=== PATIENT | female | born 1990 | race Caucasian/White ===

== ENCOUNTER 2017-06-11 06:22 | Inpatient (IN) ==
[2017-06-11] MEDS: LACTATED RINGERS 1,000 ML IV SCH ×3 (07:09→21:04)
[2017-06-11] MEDS ORDERED: MEPERIDINE 50 MG/1 ML VIAL IV PRN (07:11)
[2017-06-11] MEDS ORDERED: BUTORPHANOL 2 MG/ML VIAL IV PRN (07:11)
[2017-06-11] MEDS ORDERED: ONDANSETRON 4 MG/2 ML VIAL IV PRN (07:11)
[2017-06-11] MEDS ORDERED: AMPICILLIN INJ 2,000 MG in SODIUM CHLORIDE 0.9% 50 ML IV ONE (07:15)
[2017-06-11] MEDS ORDERED: OXYTOCIN/LR 20 UNIT/1,000 ML BAG IV SCH (07:30)
[2017-06-11 07:42] LABS: Basophils # 0.1 10*3/uL (0.0-0.2); Basophils % 0.7 % (0.0-0.8); Eosinophils # 0.2 10*3/uL (0.0-0.87); Eosinophils % 1.5 % (0.00-10.9); Hematocrit 35.6 VOL% (35.7-47.0); Hemoglobin 13.1 GM/DL (12.0-16.0); Immature Granulocytes % 1.5 %; Immature Granulocytes Absolute 0.16 #; Lymphocytes # 2.5 10*3/uL (1.4-4.0); Lymphocytes % 23.6 % (21.3-54.2); Mean Corpuscular HGB Conc 36.8 GM/DL (32-36); Mean Corpuscular Hemoglobin 33 PG (27-34); Mean Corpuscular Volume 89.2 FL (87-102); Mean Platelet Volume 10.2 FL (9.6-12.0); Monocytes # 0.7 10*3/uL (0.11-0.8); Monocytes % 6.7 % (1.7-12.7); Platelet Count 185 T/CUMM (130-400); Red Blood Count 3.99 MC/CUMM (3.8-5.5); Red Cell Distribution Width 12.9 % (9.3-17.3); White Blood Count 10.6 T/CUMM (4-12)
[2017-06-11 07:55] LABS: INR 0.9; PT Patient Result 9.7 SECS; Partial Thromboplastin Time 27.1 SECS (0-40)
[2017-06-11 08:19] LABS: Albumin 3.1 G/DL (3.4-5.0); Bilirubin,Total 0.7 MG/DL (0.2-1.0); Osmolality,Calculated 266.2 MOS/KG (273-304); Potassium 3.8 MMOL/L (3.5-5.1); Total Protein 7.3 G/DL (6.4-8.3); Uric Acid 4.7 MG/DL (2.6-6.0)
[2017-06-11] MEDS ORDERED: ePHEDrine 50 MG/ML AMP IV PRN (12:42)
[2017-06-11] MEDS ORDERED: hydrOXYzine HCL 25 MG/1 ML VIAL IM PRN (12:42)
[2017-06-11] MEDS ORDERED: CITRIC ACID/SODIUM CITRATE 30 ML UDCUP PO ONE (12:42)
[2017-06-11] MEDS ORDERED: diphenhydrAMINE 50 MG/1 ML VIAL IV PRN ×2 (12:42)
[2017-06-11] MEDS ORDERED: PROMETHAZINE 25 MG/1 ML VIAL IM ONE (12:42)
[2017-06-11] MEDS ORDERED: LACTATED RINGERS 1,000 ML IV ONE (12:42)
[2017-06-11] MEDS ORDERED: FAMOTIDINE 20 MG/2 ML VIAL IV ONE (12:42)
[2017-06-11] MEDS: fentaNYL 2 MCG/ROPIV 0.2% EPID 150 ML EPIDURAL SCH ×2 (13:25→22:57)
[2017-06-11 13:59] LABS: HIV Antigen/Antibody Result Nonreactive (Nonreactive); Hepatitis B Surface Ag Quant 0.17 Index; Hepatitis B Surface Ag Result Negative (Negative); Rubella Antibody IgG 27.4 IU/ML
[2017-06-11 15:44] LABS: Apearance,Urine CLEAR (Clear); Bilirubin,Urine Negative (Negative); Blood, Urine Negative (Negative); Glucose,Urine (UA) Negative (Negative); Ketones,Urine Negative (Negative); Nitrite,Urine Negative (Negative); Protein,Urine Negative; RBC,Urine 1 /HPF (0-4); Urine Color Straw (Yellow); Urine Specific Gravity 1.005 (1.001-1.035); Urine Urobilinogen < 2.0 EU/DL (0.2-1.0); WBC,Urine <1 /HPF (0-6)
[2017-06-11] MEDS ORDERED: LIDOCAINE 1% 50 ML VIAL ONE (21:22)
[2017-06-11] MEDS ORDERED: miSOPROStol 200 MCG TABLET ONE (21:23)
[2017-06-11] MEDS ORDERED: METHYLERGONOVINE 0.2 MG/1 ML AMP ONE (21:23)
[2017-06-11] MEDS ORDERED: TRANEXAMIC ACID 1,000 MG/10 ML VIAL IV ONE (21:23)
[2017-06-12] MEDS ORDERED: ACETAMINOPHEN 325 MG TABLET PO PRN (00:26)
[2017-06-12] MEDS ORDERED: LANOLIN 50% CREAM 0.3 OZ TUBE TOP PRN (00:26)
[2017-06-12] MEDS ORDERED: HYDROCORTISONE 2.5% RECTAL CREAM 30 GM TUBE TOP PRN (00:26)
[2017-06-12] MEDS ORDERED: DIPH/TET/ACEL PERT BOOSTER VACCINE 0.5 ML VIAL IM ONE (00:26)
[2017-06-12] MEDS ORDERED: RHO(D) IMMUNE GLOBULIN 300 MCG SYRINGE IM ONE ×2 (00:26→18:53)
[2017-06-12] MEDS ORDERED: OXYTOCIN/LR 20 UNIT/1,000 ML BAG IV ONE (00:26)
[2017-06-12] MEDS ORDERED: WITCH HAZEL PADS 100/JAR TOP PRN (00:26)
[2017-06-12] MEDS ORDERED: BENZOCAINE 20%/MENTHOL 0.5% SPRAY 56 GM CAN TOP PRN (00:26)
[2017-06-12] MEDS ORDERED: MEASLES/MUMPS/RUBELLA VACCINE 0.5 ML VIAL SUBCUT ONE (00:26)
[2017-06-12] MEDS ORDERED: ONDANSETRON 4 MG/2 ML VIAL IV PRN (00:26)
[2017-06-12] MEDS ORDERED: BISACODYL 10 MG SUPP RECTAL PRN (00:26)
[2017-06-12] MEDS: oxyCODONE/ACETAMINOPHEN 5-325 MG TABLET PO PRN ×2 (01:18→22:13)
[2017-06-12] MEDS: IBUPROFEN 800 MG TABLET PO PRN ×3 (03:58→22:07)
[2017-06-12 08:24] LABS: Basophils # 0.1 10*3/uL (0.0-0.2); Basophils % 0.4 % (0.0-0.8); Eosinophils % 0.1 % (0.00-10.9); Hematocrit 28.9 VOL% (35.7-47.0); Hemoglobin 10.5 GM/DL (12.0-16.0); Immature Granulocytes % 0.8 %; Immature Granulocytes Absolute 0.15 #; Lymphocytes # 1.8 10*3/uL (1.4-4.0); Lymphocytes % 9.6 % (21.3-54.2); Mean Corpuscular HGB Conc 36.3 GM/DL (32-36); Mean Corpuscular Hemoglobin 33 PG (27-34); Mean Corpuscular Volume 89.5 FL (87-102); Monocytes # 0.9 10*3/uL (0.11-0.8); Monocytes % 4.6 % (1.7-12.7); Neutrophils # 15.5 10*3/uL (1.4-7.4); Neutrophils % 84.5 % (38.7-73.9); Red Blood Count 3.23 MC/CUMM (3.8-5.5); White Blood Count 18.3 T/CUMM (4-12)
[2017-06-12 08:28] LABS: Platelet Count 116 T/CUMM (130-400)
[2017-06-12] MEDS: DOCUSATE SODIUM 100 MG CAPSULE PO SCH ×2 (10:34→22:07)
[2017-06-13] MEDS: DOCUSATE SODIUM 100 MG CAPSULE PO SCH (08:27)
[2017-06-13] MEDS: IBUPROFEN 800 MG TABLET PO PRN (08:30)
[2017-06-13] MEDS: oxyCODONE/ACETAMINOPHEN 5-325 MG TABLET PO PRN (08:30)
[2017-06-13 11:14] VITALS: BP 92/64
== END 2017-06-13 13:10 | disposition home or self-care (01) | DRG 775 ==
LOC: N.LDOUT 06:22 → N.LD 06:34 → N.OB 06-12 01:27
PROVIDERS: ADMIT Obstetrics & Gynecology; ATTEND Obstetrics & Gynecology